=== PATIENT | female | born 2000 | race African-American/Black ===

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

== ENCOUNTER 2024-02-28 14:55 | Emergency (ER) | payer OTHER, SELFPAY ==
[2024-02-28 15:25] LABS: Bilirubin Negative (Negative); Blood, Urine Negative (Negative); Glucose, Urine (Dipstick) Negative (Negative); Ketone, Urine Negative (Negative); Leukocyte Negative (Negative); Nitrite Negative (Negative); Protein, Urine (Dipstick) Negative (Neg-Trace); Urobilinogen 0.2 mg/dL (Less than 2); pH, Urine 5.5 (5.0-9.0)
[2024-02-28 15:26] LABS: Clarity Clear (Clear)
[2024-02-28 15:27] LABS: Pregnancy Test - Urine (BHCG) Negative (Negative); Pregu Control Background? CLEAR/WHITE (CLR/WHITE); Pregu Control Bar Appear? YES (CONTROL BAR)
[2024-02-28 15:34] LABS: CAUTI Indications for Culture Pelvic or flank pain; RBC/HPF None Seen HPF (0-3); WBC/HPF None Seen HPF (0-3)
[2024-02-28 15:35] LABS: Bacteria/HPF Rare-Few HPF (None Seen); Mucous/LPF Few LPF (<2+); Urine Culture Reflex No No
[2024-02-28] MEDS ORDERED: cefTRIAXone (ROCEPHIN) 500 MG VIAL ONE (16:40)
[2024-02-28] MEDS ORDERED: Azithromycin 250 MG TAB ONE (16:40)
[2024-02-29 01:35] LABS: Chlam.trachomatis by PCR,Urine Not Detected (NotDetected); GC N.gonorrhoeae PCR,UrineVOID Not Detected (NotDetected)
== END 2024-02-28 18:00 | disposition home or self-care (01) ==
LOC: MADERS 14:55
DX: B37.31 Acute candidiasis of vulva and vagina (principal)
CPT/HCPCS: 81001; 81025; 87480; 87491; 87510; 87591; 87660; 96372; 99283; J0696